=== PATIENT | male | born 1960 | race African-American/Black ===

== ENCOUNTER 2022-08-04 16:37 | Emergency (ER) | payer MEDICAID ==
[~2022-08-04] VITALS: Ht 180.3 cm; Wt 83.0 kg
[~2022-08-04 16:37] MED LIST: TAMS-11 PO
[2022-08-04] MEDS ORDERED: SODIUM CHLORIDE 0.9% 1,000 ML IV ONE (17:00)
[2022-08-04 17:31] LABS: BASOPHILS % 0.9 % (0.0-2.0); EOSINOPHILS % 0.9 % (0.0-5.0); HEMATOCRIT. 45.4 % (42.0-52.0); HEMOGLOBIN. 15.1 g/dL (14.0-18.0); LYMPHOCYTES % 17.3 % (20.0-50.0); MEAN CORPUSCULAR HEMOGLOBIN 30.1 pg (28.0-32.0); MEAN CORPUSCULAR VOLUME 90.4 fL (80.0-94.0); MEAN PLATELET VOLUME 7.6 fl (7.4-10.4); MONOCYTES % 9.6 % (2.0-8.0); NEUTROPHILS % 71.3 % (40.0-76.0); PLATELET 260 x1000/uL (130-400); RED BLOOD CELL COUNT 5.03 mill/uL (4.7-6.1); RED CELL DISTRIBUTION WIDTH 14.2 % (11.6-14.6)
[2022-08-04 17:40] LABS: CHLORIDE 106 mEq/L (98-107)
[2022-08-04 17:51] LABS: ETHANOL BLOOD 16 mg/dL
[2022-08-04 20:00] VITALS: BP 120/89
== END 2022-08-04 22:51 | disposition home or self-care (01) ==
LOC: ER 16:37
DX: R55 Syncope and collapse (principal); J44.9 Chronic obstructive pulmonary disease, unspecified; I10 Essential (primary) hypertension
CPT/HCPCS: 36415; 71045; 80053; 80320; 82962; 84484; 85025; 96360; 99284; J7030; G0480

== ENCOUNTER 2022-09-16 20:32 | Emergency (ER) | payer MEDICAID ==
[~2022-09-16] VITALS: Ht 188 cm; Wt 82.0 kg
[2022-09-16 21:02] VITALS: BP 150/90
[2022-09-16 22:01] LABS: BASOPHILS % 0.4 % (0.0-2.0); EOSINOPHILS % 2.6 % (0.0-5.0); HEMATOCRIT. 37.9 % (42.0-52.0); HEMOGLOBIN. 12.8 g/dL (14.0-18.0); LYMPHOCYTES % 9.2 % (20.0-50.0); MEAN CORPUSCULAR HEMOGLOBIN 29.8 pg (28.0-32.0); NEUTROPHILS % 75.8 % (40.0-76.0); RED CELL DISTRIBUTION WIDTH 13.1 % (11.6-14.6)
[2022-09-16 22:08] LABS: CHLORIDE 103 mEq/L (98-107)
[2022-09-16 22:31] LABS: MEAN PLATELET VOLUME 7.4 fl (7.4-10.4); PLATELET 277 x1000/uL (130-400)
== END 2022-09-17 15:53 | disposition left against medical advice (07) ==
LOC: ER 20:32
DX: Z53.21 Procedure and treatment not carried out due to patient leaving prior to being seen by health care provider (principal)
CPT/HCPCS: 36415; 71045; 80053; 85025; 99284